=== PATIENT | male | born 1945 | race Two or more races ===

== ENCOUNTER 2023-10-21 19:03 | Emergency (ER) | payer OTHER, MEDICAID ==
[~2023-10-21] VITALS: Ht 177.8 cm; Wt 94.3 kg
[2023-10-21 19:13] VITALS: TEMP 98.7
[2023-10-21 19:31] LABS: EOSINOPHILS % (AUTO) 0.1 % (0.0-6.0); HEMATOCRIT 37 % (39-51); LYMPHOCYTES # (AUTO) 0.5 K/uL (0.8-4.8); LYMPHOCYTES % (AUTO) 3.1 % (20.0-44.0); MEAN CORPUSCULAR HEMOGLOBIN 28 PG (26.0-33.0); MEAN CORPUSCULAR HGB CONC 32 g/dl (31.0-36.0); MEAN CORPUSCULAR VOLUME 87 fL (80-96); MONOCYTES # (AUTO) 0.2 K/uL (0.1-1.30); NEUTROPHILS # (AUTO) 14.3 K/uL (1.8-8.9); NEUTROPHILS % (AUTO) 95.8 % (43.0-81.0); PLATELET COUNT (AUTO) 238 K/uL (150-450); RED CELL DISTRIBUTION WIDTH 14.5 % (11.5-15.0)
[2023-10-21 19:38] LABS: CALCIUM, SERUM 8.2 mg/dL (8.5-10.1); CARBON DIOXIDE 24 mmol/L (21-32); CHLORIDE 105 mmol/L (98-107); CREATININE 1.8 mg/dL (0.6-1.3); GLUCOSE 182 mg/dL (74-106); POTASSIUM 4.2 mmol/L (3.5-5.1); SODIUM SERUM 140 mmol/L (136-145); UREA NITROGEN, BLOOD 17 mg/dL (7-18)
[2023-10-21 19:44] LABS: ALANINE AMINOTRANSFERASE 13 U/L (12-78); ALBUMIN 2.5 g/dL (3.4-5.0); ALKALINE PHOSPHATASE 71 U/L (46-116); ASPARTATE AMINOTRANSFERASE 11 U/L (15-37); BILIRUBIN,DIRECT 0.3 mg/dL (0.0-0.2); BILIRUBIN,TOTAL 0.9 mg/dL (0.2-1.0); TOTAL PROTEIN, SERUM 5.7 g/dL (6.4-8.2)
[2023-10-21] MEDS: IV NS 0.9% 1,000 ML BAG IV ONE ×2 (19:46→19:47)
[2023-10-21 19:48] LABS: INR 1.15 (0.91-1.10); PARTIAL THROMBOPLASTIN TIME 22.3 SEC (24.3-34.3); PROTHROMBIN TIME 11.7 SECS (9.2-11.1)
[2023-10-21] MEDS ORDERED: PIPERACI/TAZO 3.375GM/D5W 50ML PB IV ONE (19:48)
[2023-10-21] MEDS ORDERED: VANCOMYCIN 1 GM /D5W 250 ML PB IV ONE (19:48)
--- NOTE | 2023-10-21 19:54 | NUR ---
LACTIC ACID 3.9
[2023-10-21 19:55] LABS: LACTIC ACID 3.9 mmol/L (0.4-2.0)
[2023-10-21] MEDS: PIPERACILLIN /TAZOBACTAM 3.375 G in IV D5W 50 ML IV ONE (19:57)
[2023-10-21] MEDS ORDERED: IOHEXOL-300 100 ML VIAL IV ONE (20:07)
[2023-10-21] MEDS ORDERED: IV NS 0.9% 250 ML IV ONE (20:08)
--- NOTE | 2023-10-21 20:58 | NUR ---
lactic 3.1
--- NOTE | 2023-10-21 21:03 | NUR ---
[facility] PATIENT, MOVE SHEET SUBMITTED
[2023-10-21] MEDS: VANCOMYCIN 1 GM in IV D5W 250 ML IV ONE (21:17)
[2023-10-21] MEDS ORDERED: LISI1TAB29 PO (21:25)
--- NOTE | 2023-10-21 21:58 | NUR ---
ON THE PHONE WITH DR.SINGH EDMONDSON
--- NOTE | 2023-10-21 22:03 | NUR ---
PATIENT ACCEPTED TO [facility] AWAITING TRANSFER INFO
--- NOTE | 2023-10-21 22:06 | NUR ---
Facesheet and clincials faxed to [facility]
--- NOTE | 2023-10-21 23:29 | NUR ---
Facesheet and clinicals faxed to [facility]
--- NOTE | 2023-10-22 00:45 | NUR ---
[place] [address]-A NURSE EDIBERT FOR REPORT [phone]
--- NOTE | 2023-10-22 01:04 | NUR ---
[facility] ETA 0500
--- NOTE | 2023-10-22 03:14 | NUR ---
Report given to Yovany RN at [facility]. Aware of ETA 0508
--- NOTE | 2023-10-22 05:25 | NUR ---
[facility] AT BEDSIDE FOR TRANSPORT TO [facility]
[2023-10-22 05:30] VITALS: BP 127/59; O2SAT 96
--- NOTE | 2023-10-22 05:39 | NUR ---
Pt transferred to [facility] via private ambulance. Pt left in stable condition. Not in acute distress, Report given to ambulance staff. Move packet given.
== END 2023-10-22 05:47 | disposition short-term general hospital (02) ==
LOC: ER 19:05
DX: K64.9 Unspecified hemorrhoids (principal); N17.9 Acute kidney failure, unspecified; I95.9 Hypotension, unspecified; Z79.899 Other long term (current) drug therapy; Z98.890 Other specified postprocedural states; Z20.822 Contact with and (suspected) exposure to COVID-19
CPT/HCPCS: 99291; 74177; 96365; 71045; 96367; 87426; 93005; 85025; 80048; 87040; 83605 ×2; 80076; 36415; 84484 ×2; 85730; 86850; J3370 ×2; J2543 ×2; J7060; J7050; Q9967; A4223